=== PATIENT | female | born 1975 | race American Indian/Alaskan Native ===

== ENCOUNTER 2021-07-24 11:21 | Emergency (ER) | payer BC, OTHER ==
[2021-07-24] MEDS ORDERED: HYDROcodone/ACETAMINOPHEN 5-325 MG TAB PO ONE (11:50)
[2021-07-24] MEDS ORDERED: IBUPROFEN 600 MG TAB PO ONE (11:50)
--- NOTE | 2021-07-24 11:55 | Emergency Department Report ---
ED Female HPI - General Chief complaint: Urogenital-Female Stated complaint: PELVIC PAIN/VAG BLEEDING Time Seen by Provider: 07/24/21 11:42 Source: patient Mode of arrival: Ambulatory Limitations: No Limitations - History of Present Illness Initial comments: Patient is a 46-year-old female presents emergency room with complaints of worsening pelvic pain that began yesterday. Patient has a history of endometriosis and fibroids. She states that she had an ablation procedure in 2017. She states that her menstrual cycle began on 07/21/21. She states typically by day 4 of her cycle her symptoms and bleeding have improved. She states that her pain has increased and her bleeding has become heavier. She states that she is changing her pad approximately 6 or 7 times a day. She states that she has heavy bleeding and is passing clots. Patient states that she went to her PROJECT ADMINISTRATOR office yesterday and had a full complete pelvic examination but states that she was not having as much pain and bleeding then. She states that they were discussing setting her up for outpatient labs and ultrasound. She states that the pain just got worse and that is what made her report to the emergency room. Past medical history of hypertension and sarcoidosis. No allergies to medications. pts mother is from ovarian cancer. she has a hx of ablation and right sided oopherectomy from an endometrioma. - Related Data Home Medications Medication Instructions Recorded Confirmed Last Taken Citalopram Hydrobromide 40 mg PO DAILY 09/13/17 07/24/21 Unknown [Citalopram HBr] Ursodiol (Nf) [Actigall (Nf)] 2 cap PO BID 09/13/17 07/24/21 Unknown Previous Rx's Medication Instructions Recorded Last Taken Type Acetaminophen [Tylenol] 650 mg PO Q8HR PRN #20 capsule 07/24/21 Unknown Rx Docusate Sodium [Colace] 100 mg PO BID #60 capsule 07/24/21 Unknown Rx Ferrous Sulfate [Ferrous Sulfate 324 mg PO DAILY #30 tablet. 07/24/21 Unknown Rx 324 MG] Ibuprofen [Motrin 600 MG tab] 600 mg PO Q8H PRN #20 tablet 07/24/21 Unknown Rx Allergies Allergy/AdvReac Type Severity Reaction Status Date / Time No Known Allergies Allergy Unverified 09/13/17 11:29 ED Review of Systems ROS: Stated complaint: PELVIC PAIN/VAG BLEEDING Other details as noted in HPI Comment: All other systems reviewed and negative ED Past Medical Hx - Past Medical History Hx Hypertension: Yes Hx Liver Disease: Yes (liver sarcoidosis) - Surgical History Hx Cholecystectomy: Yes - Social History Smoking Status: Never Smoker - Medications Home Medications: Home Medications Medication Instructions Recorded Confirmed Last Taken Type Citalopram Hydrobromide 40 mg PO DAILY 09/13/17 07/24/21 Unknown History [Citalopram HBr] Ursodiol (Nf) [Actigall (Nf)] 2 cap PO BID 09/13/17 07/24/21 Unknown History Acetaminophen [Tylenol] 650 mg PO Q8HR PRN #20 capsule 07/24/21 Unknown Rx Docusate Sodium [Colace] 100 mg PO BID #60 capsule 07/24/21 Unknown Rx Ferrous Sulfate [Ferrous Sulfate 324 mg PO DAILY #30 tablet.dr 07/24/21 Unknown Rx 324 MG] Ibuprofen [Motrin 600 MG tab] 600 mg PO Q8H PRN #20 tablet 07/24/21 Unknown Rx ED Physical Exam - General Limitations: No Limitations General appearance: alert, in no apparent distress - Head Head exam: Present: atraumatic, normocephalic - Eye Eye exam: Present: normal appearance - ENT ENT exam: Present: mucous membranes moist - Respiratory Respiratory exam: Present: normal lung sounds bilaterally. Absent: respiratory distress, wheezes, rales, rhonchi, stridor, chest wall tenderness, accessory muscle use, decreased breath sounds, prolonged expiratory - Cardiovascular Cardiovascular Exam: Present: regular rate, normal rhythm, normal heart sounds. Absent: systolic murmur, diastolic murmur, rubs, gallop - GI/Abdominal GI/Abdominal exam: Present: soft, tenderness (suprapubic), normal bowel sounds. Absent: distended, guarding, rebound, rigid - Neurological Exam Neurological exam: Present: alert, oriented X3 - Psychiatric Psychiatric exam: Present: normal affect, normal mood - Skin Skin exam: Present: warm, dry, intact ED Course Vital Signs 07/24/21 07/24/21 07/24/21 11:37 12:03 12:05 Temperature 98.4 F 98.2 F Pulse Rate 105 H 73 Respiratory 20 14 Rate Blood Pressure 184/95 Blood Pressure 173/89 [Right] O2 Sat by Pulse 97 99 99 Oximetry ED Medical Decision Making - Lab Data Result diagrams: 07/24/21 13:15 07/24/21 13:15 Lab Results 07/24/21 07/24/21 07/24/21 Range/Units 13:15 13:15 13:15 WBC 13.9 H (4.5-11.0) K/mm3 RBC 3.56 L (3.65-5.03) M/mm3 Hgb 8.5 L (10.1-14.3) gm/dl Hct 27.5 L (30.3-42.9) % MCV 76 L (79-97) fl MCH 24 L (28-32) pg MCHC 31 (30-34) % RDW 20.1 H (13.2-15.2) % Plt Count 459 H (140-440) K/mm3 Lymph % (Auto) 19.8 (13.4-35.0) % T[place] % (Auto) 6.8 (0.0-7.3) % Eos % (Auto) 1.0 (0.0-4.3) % Baso % (Auto) 1.5 (0.0-1.8) % Lymph # (Auto) 2.6 (1.2-5.4) K/mm3 Taney # (Auto) 0.9 H (0.0-0.8) K/mm3 Eos # (Auto) 0.1 (0.0-0.4) K/mm3 Baso # (Auto) 0.2 H (0.0-0.1) K/mm3 Seg Neutrophils % 71.7 H (40.0-70.0) % Seg Neutrophils # 10.0 H (1.8-7.7) K/mm3 Sodium 136 L (137-145) mmol/L Potassium 3.8 (3.6-5.0) mmol/L Chloride 102.9 (98-107) mmol/L Carbon Dioxide 21 L (22-30) mmol/L Anion Gap 16 mmol/L BUN 5 L (7-17) mg/dL Creatinine 0.5 L (0.6-1.2) mg/dL Estimated GFR > 60 ml/min BUN/Creatinine Ratio 10 % Glucose 89 (65-100) mg/dL Calcium 9.1 (8.4-10.2) mg/dL Total Bilirubin 0.40 (0.1-1.2) mg/dL AST 19 (5-40) units/L ALT 12 (7-56) units/L Alkaline Phosphatase 183 H (35-129) units/L Total Protein 8.9 H (6.3-8.2) g/dL Albumin 3.4 L (3.9-5) g/dL Albumin/Globulin Ratio 0.6 % HCG, Quant < 2 (0-4) mIU/mL Vital Signs 07/24/21 07/24/21 07/24/21 11:37 12:03 12:05 Temperature 98.4 F 98.2 F Pulse Rate 105 H 73 Respiratory 20 14 Rate Blood Pressure 184/95 Blood Pressure 173/89 [Right] O2 Sat by Pulse 97 99 99 Oximetry - Radiology Data Radiology results: report reviewed Ordering Physician: ROSE MONTAGUE Date of Service: 07/24/21 Procedure(s): US transvaginal Accession Number(s): [id number] cc: ROSE MONTAGUE Pelvic Ultrasound HISTORY: pelvic pain, heavy bleeding, family hx ovarian CA. TECHNIQUE: Grayscale and color imaging performed. COMPARISON: None FINDINGS: Transabdominal and endovaginal imaging was performed. Uterus measures 10.6 x 5.2 x 5.2 cm and contains several fibroids which are primarily isoechoic to hypoechoic and slightly heterogeneous in appearance. The largest fibroid measures 2.7 cm in maximal dimension in the uterine body. Endometrial echo complex is thickened measuring 1.7 cm. There is trace simple pelvic free fluid. Right ovary surgically absent. The left ovary contains cysts measuring up to 3.5 cm in maximal dimension. There is also complex which appears to have a solid component mar ginally and measures 2.2 cm in maximal dimension. There is preserved ovarian blood flow. IMPRESSION: 1. Uterine fibroids. 2. Left ovary contains cysts with a complex cyst versus partially solid mass. The latter possibility exists because there appears to be some marginal blood flow. C orrelate with MRI of the pelvis with contrast. 3. Right ovary surgically absent. Signer Name: Te Cordon MD Signed: 07/24/2021 1:01 PM Workstation Name: [id number] Transcribed By: ALBIN Dictated By: Te Cordon MD Electronically Authenticated By: Te Cordon MD Signed Date/Time: 07/24/21 1301 DD/ 0601 TD/TT: - Medical Decision Making Patient is a 46-year-old female presents emergency room with complaints of worsening pelvic pain that began yesterday. Patient has a history of endometriosis and fibroids. She states that she had an ablation procedure in 2017. She states that her menstrual cycle began on 07/21/21. She states typically by day 4 of her cycle her symptoms and bleeding have improved. She states that her pain has increased and her bleeding has become heavier. She states that she is changing her pad approximately 6 or 7 times a day. She states that she has heavy bleeding and is passing clots. Patient states that she went to her PROJECT ADMINISTRATOR office yesterday and had a full complete pelvic examination but states that she was not having as much pain and bleeding then. She states that they were discussing setting her up for outpatient labs and ultrasound. She states that the pain just got worse and that is what made her report to the emergency room. Past medical history of hypertension and sarcoidosis. No allergies to medications. pts mother is from ovarian cancer. she has a hx of ablation and right sided oopherectomy from an endometrioma. Vitals with elevated blood pressure, otherwise stable. Patient is not having any symptoms related to her elevated blood pressure, patient was offered to be started on medication or to attempt lifestyle modification with close primary care follow-up, she states that she would like to do lifestyle modifications and keep a blood pressure log and follow-up outpatient. Labs with stable microcytic anemia. hCG quant is less than 2. Pelvic ultrasound: 1. Uterine fibroids. 2. Left ovary contains cysts with a complex cyst versus partially solid mass. The latter possibility exists because there appears to be some marginal blood flow. Correlate with MRI of the pelvis with contrast. 3. Right ovary surgically absent. Discussed all results with patient discussed the importance of close PROJECT ADMINISTRATOR follow-up regarding abnormality on ultrasound. Dr. Rosa, ER attending also evaluated patient at bedside please see his note. Patient given prescription for medications. Advised patient Please take medication as prescribed. Follow-up with your PROJECT ADMINISTRATOR. Follow-up with your primary care doctor. Return to emergency room for any new or worsening symptoms. Please follow-up with your primary care doctor regarding the elevation in your blood pressure during today's visit. Eat a low-sodium diet, incorporate 30-60 minutes of daily exercise, keep a blood pressure log and take this to the primary care doctor. Critical care attestation.: If time is entered above; I have spent that time in minutes in the direct care of this critically ill patient, excluding procedure time. ED Disposition Clinical Impression: Dysmenorrhea, Ovarian mass, left, Microcytic anemia, Elevated blood pressure reading Menorrhagia Qualifiers: Menorrhagia type: with regular cycle Qualified Code(s): N92.0 - Excessive and frequent menstruation with regular cycle Disposition: 01 HOME / SELF CARE / HOMELESS Is pt being admited?: No Does the pt Need Aspirin: No Condition: Stable Instructions: Preventing Iron Deficiency Anemia, Adult, Menorrhagia, [id number], Managing Your Hypertension, Dysmenorrhea, [id number] Additional Instructions: Please take medication as prescribed. Follow-up with your PROJECT ADMINISTRATOR. Follow-up with your primary care doctor. Return to emergency room for any new or worsening symptoms. Please follow-up with your primary care doctor regarding the elevation in your blood pressure during today's visit. Eat a low-sodium diet, incorporate 30-60 minutes of daily exercise, keep a blood pressure log and take this to the primary care doctor. Prescriptions: Docusate Sodium [Colace] 100 mg PO BID #60 capsule Ferrous Sulfate [Ferrous Sulfate 324 MG] 324 mg PO DAILY #30 tablet. Ibuprofen [Motrin 600 MG tab] 600 mg PO Q8H PRN #20 tablet PRN Reason: Pain Acetaminophen [Tylenol] 650 mg PO Q8HR PRN #20 capsule PRN Reason: pain Referrals: ELIE MENDOZA MD [Primary Care Provider] - 3-5 Days MAI GONZALES MD [Staff Physician] - 3-5 Days Time of Disposition: 14:42 Print Language: GAMBIAN
[2021-07-24 12:11] VITALS: BP 173/89
--- NOTE | 2021-07-24 13:05 | Ultrasound Report ---
Pelvic Ultrasound HISTORY: pelvic pain, heavy bleeding, family hx ovarian CA. TECHNIQUE: Grayscale and color imaging performed. COMPARISON: None FINDINGS: Transabdominal and endovaginal imaging was performed. Uterus measures 10.6 x 5.2 x 5.2 cm and contains several fibroids which are primarily isoechoic to hy poechoic and slightly heterogeneous in appearance. The largest fibroid measures 2.7 cm in maximal dim ension in the uterine body. Endometrial echo complex is thickened measuring 1.7 cm. There is trace simple pelvic free fluid. Right ovary surgically absent. The left ovary contains cysts measuring up to 3.5 cm in maximal dimens ion. There is also complex which appears to have a solid component marginally and measures 2.2 cm in maximal dimension. There is preserved ovarian blood flow. IMPRESSION: 1. Uterine fibroids. 2. Left ovary contains cysts with a complex cyst versus partially solid mass. The latter possibility exists because there appears to be some marginal blood flow. Correlate with MRI of the pelvis with co ntrast. 3. Right ovary surgically absent. Signer Name: Te Cordon MD Signed: 07/24/2021 1:01 PM Workstation Name: [id number]
--- NOTE | 2021-07-24 13:20 | Event Note ---
Date: 07/24/21 The patient was evaluated in the emergency department for symptoms described in the history of present illness. He/she was evaluated in the context of the global COVID-19 pandemic, which necessitated consideration that the patient might be at risk for infection with the virus that causes COVID-19. Institutional protocols and algorithms that pertain to the evaluation of patients at risk for COVID-19 are in a state of rapid change based on information released by regulatory bodies including the CDC and federal and state organizations. These policies and algorithms were followed during the patient's care in the emergency department. Please note that these policies, procedures and recommendations changed on a rapid basis. [id number] evaluation performed. Patient presented with dysmenorrhea. She has a history of right-sided oophorectomy, secondary to nonmalignant tumor, and history of dysmenorrhea, and myomectomy. She saw her wallpaper hanger helper Dr. Thrasher yesterday. She has a follow-up appointment with her wallpaper hanger helper on August 05 of next week. She states that she has no significant pain at this time. She is aware that she has elevated blood pressure, but does not have a chronically known diagnosis of established hypertension. She is follows with a primary care doctor, and she reports that she prefers to pursue diet and lifestyle modifications for her elevated blood pressure. She prefers to be discharged with ibuprofen, 800 mg, every 8 hours with food as needed for pain, alternating with acetaminophen, 650 mg by mouth, every 4-6 hours as needed for pain. I did offer the patient a short course of opioids for breakthrough pain, but she did not want this prescription, I have concern for addiction, and chemical dependency. Through shared decision-making, we agreed for a trial of the aforementioned nonnarcotic analgesia, and she will follow up with her wallpaper hanger helper next week, to determine if more potent analgesia is required. At the moment, she appears comfortable, is talking on the cell phone, and endorses significant improvement in symptoms. Specifically counseled patient on need to follow-up with her wallpaper hanger helper to rule out cancer, tumor, malignancy. This patient has articulated understanding. [facility] [address] [place] [address] Ultrasound Report Signed Patient: LUKAS MONGE MR# : [id number] : 1975 Acct:[id number] Age/Sex: 46 / F ADM Date: 07/24/21 Loc: ED Attending Dr: Ordering Physician: ROSE MONTAGUE Date of Service: 07/24/21 Procedure(s): US transvaginal Accession Number(s): [id number] cc: ROSE MONTAGUE Pelvic Ultrasound HISTORY: pelvic pain, heavy bleeding, family hx ovarian CA. TECHNIQUE: Grayscale and color imaging performed. COMPARISON: None FINDINGS: Transabdominal and endovaginal imaging was performed. Uterus measures 10.6 x 5.2 x 5.2 cm and contains several fibroids which are primarily isoechoic to hypoechoic and slightly heterogeneous in appearance. The largest fibroid measures 2.7 cm in maximal dimension in the uterine body. Endometrial echo complex is thickened measuring 1.7 cm. There is trace simple pelvic free fluid. Right ovary surgically absent. The left ovary contains cysts measuring up to 3.5 cm in maximal dimension. There is also complex which appears to have a solid component marginally and measures 2.2 cm in maximal dimension. There is preserved ovarian blood flow. IMPRESSION: 1. Uterine fibroids. 2. Left ovary contains cysts with a complex cyst versus partially solid mass. The latter possibility exists because there appears to be some marginal blood flow. Correlate with MRI of the pelvis with contrast. 3. Right ovary surgically absent. Signer Name: Te Cordon MD Signed: 07/24/2021 1:01 PM Workstation Name: [id number] Transcribed By: JW Dictated By: Te Cordon MD Electronically Authenticated By: Te Cordon MD Signed Date/Time: 07/24/21 1301 DD/ 1259 TD/TT: Lab Results 07/24/21 07/24/21 07/24/21 Range/Units 13:15 13:15 13:15 WBC 13.9 H (4.5-11.0) K/mm3 RBC 3.56 L (3.65-5.03) M/mm3 Hgb 8.5 L (10.1-14.3) gm/dl Hct 27.5 L (30.3-42.9) % MCV 76 L (79-97) fl MCH 24 L (28-32) pg MCHC 31 (30-34) % RDW 20.1 H (13.2-15.2) % Plt Count 459 H (140-440) K/mm3 Lymph % (Auto) 19.8 (13.4-35.0) % [place] % (Auto) 6.8 (0.0-7.3) % Eos % (Auto) 1.0 (0.0-4.3) % Baso % (Auto) 1.5 (0.0-1.8) % Lymph # (Auto) 2.6 (1.2-5.4) K/mm3 [place] # (Auto) 0.9 H (0.0-0.8) K/mm3 Eos # (Auto) 0.1 (0.0-0.4) K/mm3 Baso # (Auto) 0.2 H (0.0-0.1) K/mm3 Seg Neutrophils % 71.7 H (40.0-70.0) % Seg Neutrophils # 10.0 H (1.8-7.7) K/mm3 Sodium 136 L (137-145) mmol/L Potassium 3.8 (3.6-5.0) mmol/L Chloride 102.9 (98-107) mmol/L Carbon Dioxide 21 L (22-30) mmol/L Anion Gap 16 mmol/L BUN 5 L (7-17) mg/dL Creatinine 0.5 L (0.6-1.2) mg/dL Estimated GFR > 60 ml/min BUN/Creatinine Ratio 10 % Glucose 89 (65-100) mg/dL Calcium 9.1 (8.4-10.2) mg/dL Total Bilirubin 0.40 (0.1-1.2) mg/dL AST 19 (5-40) units/L ALT 12 (7-56) units/L Alkaline Phosphatase 183 H (35-129) units/L Total Protein 8.9 H (6.3-8.2) g/dL Albumin 3.4 L (3.9-5) g/dL Albumin/Globulin Ratio 0.6 % HCG, Quant < 2 (0-4) mIU/mL Vital Signs 07/24/21 07/24/21 07/24/21 11:37 12:03 12:05 Temperature 98.4 F 98.2 F Pulse Rate 105 H 73 Respiratory 20 14 Rate Blood Pressure 184/95 Blood Pressure 173/89 [Right] O2 Sat by Pulse 97 99 99 Oximetry
[2021-07-24 13:48] LABS: Alanine Aminotransferase 12 units/L (7-56); Albumin 3.4 g/dL (3.9-5); Blood Urea Nitrogen 5 mg/dL (7-17); Calcium 9.1 mg/dL (8.4-10.2); Hemolysis Index 3
[2021-07-24 13:49] LABS: BUN/Creatinine Ratio 10
[2021-07-24 14:26] LABS: Hemoglobin 8.5 gm/dl (10.1-14.3); Red Blood Count 3.56 M/mm3 (3.65-5.03)
[2021-07-24 14:27] LABS: Hematocrit 27.5 % (30.3-42.9); Mean Corpuscular HGB Conc 31 % (30-34); Mean Corpuscular Volume 76 fl (79-97); Platelet Count 459 K/mm3 (140-440); Red Cell Distribution Width 20.1 % (13.2-15.2)
[2021-07-24 14:29] LABS: Basophils # (Auto) 0.2 K/mm3 (0.0-0.1); Eosinophils # (Auto) 0.1 K/mm3 (0.0-0.4); Lymphocytes # (Auto) 2.6 K/mm3 (1.2-5.4); Monocytes # (Auto) 0.9 K/mm3 (0.0-0.8)
[2021-07-24 14:30] LABS: Basophils % (Auto) 1.5 % (0.0-1.8); Lymphocytes % (Auto) 19.8 % (13.4-35.0); Monocytes % (Auto) 6.8 % (0.0-7.3)
== END 2021-07-24 15:23 | disposition home or self-care (01) ==
LOC: ED 11:21
DX: N94.6 Dysmenorrhea, unspecified (principal); N92.0 Excessive and frequent menstruation with regular cycle; D64.89 Other specified anemias; N83.9 Noninflammatory disorder of ovary, fallopian tube and broad ligament, unspecified; R03.0 Elevated blood-pressure reading, without diagnosis of hypertension; I10 Essential (primary) hypertension; Z79.899 Other long term (current) drug therapy
CPT/HCPCS: 36415; 76830; 76856; 80053; 84702; 85025; 99284

== ENCOUNTER 2021-07-27 17:37 | Emergency (ER) | payer OTHER ==
[2021-07-27 19:53] VITALS: BP 149/90
--- NOTE | 2021-07-27 19:57 | Emergency Department Report ---
ED Female HPI - General Chief complaint: Urogenital-Female Stated complaint: SEVERE PELVIC PAIN Time Seen by Provider: 07/27/21 19:55 Source: patient Mode of arrival: Ambulatory Limitations: No Limitations - History of Present Illness Initial comments: 46-year-old female presents to the ER today with complaints of left pelvic pain and concern that she may be taking too much ibuprofen. Patient was seen here 3 days ago for worsening pelvic pain and heavier than normal bleeding during her menstrual cycle. During her evaluation patient had labs done including a pelvic ultrasound which showed that she had " Uterine fibroids and Left ovary contains cysts with a complex cyst versus partially solid mass. The latter possibility exists because there appears to be some marginal blood flow". Patient was discharged home in stable condition with instructions to follow-up with her LOSS PREVENTION RESEARCH ENGINEER. Patient states that she was given ibuprofen 800 for pain, but she states that she feels like she is taking too much ibuprofen. She states that ibuprofen does help the pain, but only last 3 hours. She states that she does have an appointment with her LOSS PREVENTION RESEARCH ENGINEER, Dr. Adames tomorrow but she just wants something to help control the pain better until her appointment. Patient states that since she was seen here 3 days ago her bleeding has slowed down significa ntly to where she is only sees it when she wipes. She denies any fever, nausea, vomiting, UTI symptoms, abnormal vaginal discharge, or any additional symptoms at this time. 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 MD Complaint: pelvic pain -: week(s) - Related Data Home Medications Medication Instructions Recorded Confirmed Last Taken Citalopram Hydrobromide 40 mg PO DAILY 09/13/17 07/24/21 Unknown [Citalopram HBr] Ursodiol (Nf) [Actigall (Nf)] 2 cap PO BID 09/13/17 07/24/21 Unknown Previous Rx's Medication Instructions Recorded Last Taken Type Acetaminophen [Tylenol] 650 mg PO Q8HR PRN #20 capsule 07/24/21 Unknown Rx Docusate Sodium [Colace] 100 mg PO BID #60 capsule 07/24/21 Unknown Rx Ferrous Sulfate [Ferrous Sulfate 324 mg PO DAILY #30 tablet. 07/24/21 Unknown Rx 324 MG] Ibuprofen [Motrin 600 MG tab] 600 mg PO Q8H PRN #20 tablet 07/24/21 Unknown Rx HYDROcodone/APAP 5-325 [[place] 1 each PO Q6HR PRN #12 tablet 07/27/21 Unknown Rx 5/325] Allergies Allergy/AdvReac Type Severity Reaction Status Date / Time No Known Allergies Allergy Unverified 09/13/17 11:29 ED Review of Systems ROS: Stated complaint: SEVERE PELVIC PAIN Other details as noted in HPI Comment: All other systems reviewed and negative Constitutional: denies: chills, fever Eyes: denies: eye pain, eye discharge, vision change ENT: denies: ear pain, throat pain Respiratory: denies: cough, shortness of breath, SOB with exertion, SOB at rest, wheezing Cardiovascular: denies: chest pain, palpitations Endocrine: no symptoms reported Gastrointestinal: abdominal pain. denies: nausea, diarrhea, constipation, hematemesis, melena, hematochezia Genitourinary: other (Pelvic pain). denies: urgency, dysuria, frequency, hematuria, discharge, abnormal menses, dyspareunia Musculoskeletal: denies: back pain, joint swelling, arthralgia Skin: denies: rash, lesions, change in color, change in hair/nails, pruritus Neurological: denies: headache, weakness, numbness, paresthesias, confusion, abnormal gait, vertigo Psychiatric: denies: anxiety, depression, auditory hallucinations, visual hallucinations, homicidal thoughts, suicidal thoughts Hematological/Lymphatic: denies: easy bleeding, easy bruising ED Past Medical Hx - Past Medical History Previous Medical History?: Yes Hx Hypertension: Yes Hx Liver Disease: Yes (liver sarcoidosis) Additional medical history: abnormal liver function. sarcodosis. fibroids - Surgical History Past Surgical History?: Yes Hx Cholecystectomy: Yes - Social History Smoking Status: Never Smoker - Medications Home Medications: Home Medications Medication Instructions Recorded Confirmed Last Taken Type Citalopram Hydrobromide 40 mg PO DAILY 09/13/17 07/24/21 Unknown History [Citalopram HBr] Ursodiol (Nf) [Actigall (Nf)] 2 cap PO BID 09/13/17 07/24/21 Unknown History Acetaminophen [Tylenol] 650 mg PO Q8HR PRN #20 capsule 07/24/21 Unknown Rx Docusate Sodium [Colace] 100 mg PO BID #60 capsule 07/24/21 Unknown Rx Ferrous Sulfate [Ferrous Sulfate 324 mg PO DAILY #30 tablet.dr 07/24/21 Unknown Rx 324 MG] Ibuprofen [Motrin 600 MG tab] 600 mg PO Q8H PRN #20 tablet 07/24/21 Unknown Rx HYDROcodone/APAP 5-325 [[place] 1 each PO Q6HR PRN #12 tablet 07/27/21 Unknown Rx 5/325] ED Physical Exam - General Limitations: No Limitations General appearance: alert, in no apparent distress - Head Head exam: Present: atraumatic, normocephalic, normal inspection - Eye Eye exam: Present: normal appearance, PERRL, EOMI Pupils: Present: normal accommodation - Neck Neck exam: Present: normal inspection, full ROM - Respiratory Respiratory exam: Present: normal lung sounds bilaterally. Absent: respiratory distress, wheezes, rales, rhonchi - Cardiovascular Cardiovascular Exam: Present: regular rate, normal rhythm, normal heart sounds - GI/Abdominal GI/Abdominal exam: Present: soft. Absent: distended, tenderness, guarding, rebound - Neurological Exam Neurological exam: Present: alert, oriented X3, CN II-XII intact, normal gait - Psychiatric Psychiatric exam: Present: normal affect, normal mood - Skin Skin exam: Present: intact ED Course Vital Signs 07/27/21 19:50 Temperature 98.8 F Pulse Rate 106 H Respiratory 16 Rate Blood Pressure 149/90 [Left] O2 Sat by Pulse 97 Oximetry ED Medical Decision Making - Medical Decision Making 46-year-old female presents to the ER today with complaints of left pelvic pain and concern that she may be taking too much ibuprofen. Patient was seen here 3 days ago for worsening pelvic pain and heavier than normal bleeding during her menstrual cycle. During her evaluation patient had labs done including a pelvic ultrasound which showed that she had " Uterine fibroids and Left ovary contains cysts with a complex cyst versus partially solid mass. The latter possibility exists because there appears to be some marginal blood flow". Patient was discharged home in stable condition with instructions to follow-up with her LOSS PREVENTION RESEARCH ENGINEER. Patient states that she was given ibuprofen 800 for pain, but she states that she feels like she is taking too much ibuprofen. She states that ibuprofen does help the pain, but only last 3 hours. Patient states that the pain has not changed since she was here 3 days ago. She states that she does have an appointment with her LOSS PREVENTION RESEARCH ENGINEER, Dr. Adames tomorrow but she just wants something to help control the pain better until her appointment. Patient states that since she was seen here 3 days ago her bleeding has slowed down significantly to where she is only sees it when she wipes. She denies any fever, nausea, vomiting, UTI symptoms, abnormal vaginal discharge, or any additional symptoms at this time. 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 Physical exam shows a well-appearing female who is nontoxic and not in any acute distress. She appears well-hydrated. She is neurologically intact with a normal gait. Abdominal exam shows soft nontender abdomen. Her vital signs are stable. Patient requesting better pain control for her pelvic pain. Its the same pain that she has had for a while. She is scheduled to see LOSS PREVENTION RESEARCH ENGINEER tomorrow. Informed patient I will give her a few hydrocodone's, and she can continue taking ibuprofen but most importantly to keep her appointment with her OB. Patient expressed understanding for instructions and agree with plan. Patient stable at time of discharge. Critical care attestation.: If time is entered above; I have spent that time in minutes in the direct care of this critically ill patient, excluding procedure time. ED Disposition Clinical Impression: Pelvic pain, Ovarian mass, left, Uterine fibroid, Hx of endometriosis Disposition: HOME / SELF CARE / HOMELESS Is pt being admited?: No Does the pt Need Aspirin: No Condition: Stable Instructions: Uterine Fibroids, [id number], Pelvic Pain, Female, Pelvic Mass, Female Additional Instructions: Take the hydrocodone as prescribed. Continue taking the motrin and take the norco as needed for additional pain control. Return to ED if worse. Prescriptions: HYDROcodone/APAP 5-325 [[place] 5/325] 1 each PO Q6HR PRN #12 tablet PRN Reason: Pain Referrals: JULIA ADAMES MD [Staff Physician] - 07/28/21 Time of Disposition: 20:03
== END 2021-07-27 20:44 | disposition home or self-care (01) ==
LOC: ED 17:37
DX: N83.202 Unspecified ovarian cyst, left side (principal); D25.9 Leiomyoma of uterus, unspecified; R10.2 Pelvic and perineal pain; N80.9 Endometriosis, unspecified; I10 Essential (primary) hypertension; D86.89 Sarcoidosis of other sites; Z98.890 Other specified postprocedural states
CPT/HCPCS: 99281

== ENCOUNTER 2021-08-16 18:14 | Emergency (ER) | payer OTHER ==
[2021-08-16 18:25] VITALS: BP 153/84
[2021-08-16] MEDS ORDERED: MORPHINE 4 MG/1 ML INJ IV ONE (19:26)
[2021-08-16] MEDS ORDERED: ONDANSETRON 4 MG/2 ML INJ IV ONE (19:26)
[2021-08-16] MEDS ORDERED: SODIUM CHLORIDE 0.9% 1000 ML 1,000 ML IV ONE ×2 (19:26→21:08)
[2021-08-16] MEDS ORDERED: FAMOTIDINE 20 MG/2 ML INJ IV ONE (19:26)
[2021-08-16 20:41] LABS: Basophils # (Auto) 0.1 K/mm3 (0.0-0.1); Basophils % (Auto) 0.6 % (0.0-1.8); Eosinophils % (Auto) 0.1 % (0.0-4.3); Hematocrit 28.3 % (30.3-42.9); Hemoglobin 9.1 gm/dl (10.1-14.3); Lymphocytes # (Auto) 1.3 K/mm3 (1.2-5.4); Lymphocytes % (Auto) 14.9 % (13.4-35.0); Mean Corpuscular HGB Conc 32 % (30-34); Mean Corpuscular Volume 74 fl (79-97); Monocytes # (Auto) 0.9 K/mm3 (0.0-0.8); Monocytes % (Auto) 9.7 % (0.0-7.3); Platelet Count 402 K/mm3 (140-440); Red Blood Count 3.81 M/mm3 (3.65-5.03); Red Cell Distribution Width 18.7 % (13.2-15.2)
[2021-08-16 20:49] LABS: Alanine Aminotransferase 19 units/L (7-56); Blood Urea Nitrogen 8 mg/dL (7-17); Calcium 9.7 mg/dL (8.4-10.2); Hemolysis Index 5
[2021-08-16 20:55] LABS: BUN/Creatinine Ratio 13
[2021-08-16 20:55] LABS: Bacteria,Urine 1+ /HPF (Negative); Bilirubin,Urine NEG (Negative); Blood,Urine NEG (Negative); Color,Urine Amber (Yellow); Mucus,Urine 3+ /HPF; Protein,Urine >500 mg/dL (Negative)
[2021-08-16] MEDS ORDERED: POTASSIUM CHLORIDE ER 20 MEQ TAB PO ONE (21:04)
[2021-08-16] MEDS ORDERED: ACETAMINOPHEN 500 MG TAB PO ONE (21:08)
--- NOTE | 2021-08-16 21:09 | Emergency Department Report ---
ED Abdominal Pain HPI - General Chief Complaint: Nausea/Vomiting/Diarrhea Stated Complaint: NAUSEA/VOMITING 24HRS Source: patient Mode of arrival: Ambulatory Limitations: No Limitations - History of Present Illness Initial Comments: Patient is a 46-year-old -Indian female with a history of chronic liver disease, hypertension and uterine fibroids presents to the ED with complaint of acute onset persistent right flank pain that radiates to the right hip and right lower quadrant area for the last 5 days. Patient states that the pain has been persistent and got worse in the last 24 hours. Patient also complains of nausea and vomiting especially in the last 12 hours she has not been able to keep anything down including medication that she is supposed to be taking. Patient denies fever, chills, dizziness, syncope, headache, back pain, vaginal bleeding, vaginal discharge, dysuria, urinary frequency and urgency, diarrhea, headache or sore throat and traumatic injury or heavy lifting. MD Complaint: abdominal pain (RUQ pain), flank pain (Right flank), other (Nausea and vomiting) -: Sudden, days(s) (2) Location: RUQ, R flank Radiation: RUQ, RLQ, R flank Migration to: no migration, RLQ Severity: severe Severity scale (0 -10): 8 Quality: cramping, aching, sharp Consistency: constant Improves With: nothing Worsens With: nothing Associated Symptoms: denies other symptoms, nausea, vomiting, diarrhea, anorexia. denies: fever, chills, constipation, dysuria, melena, hematuria, syncope - Related Data Home Medications Medication Instructions Recorded Confirmed Last Taken Citalopram Hydrobromide 40 mg PO DAILY 09/13/17 07/24/21 Unknown [Citalopram HBr] Ursodiol (Nf) [Actigall (Nf)] 2 cap PO BID 09/13/17 07/24/21 Unknown Previous Rx's Medication Instructions Recorded Last Taken Type Acetaminophen [Tylenol] 650 mg PO Q8HR PRN #20 capsule 07/24/21 Unknown Rx Docusate Sodium [Colace] 100 mg PO BID #60 capsule 07/24/21 Unknown Rx Ferrous Sulfate [Ferrous Sulfate 324 mg PO DAILY #30 tablet.dr 07/24/21 Unknown Rx 324 MG] Ibuprofen [Motrin 600 MG tab] 600 mg PO Q8H PRN #20 tablet 07/24/21 Unknown Rx HYDROcodone/APAP 5-325 [[place] 1 each PO Q6HR PRN #12 tablet 07/27/21 Unknown Rx 5/325] Ibuprofen [Motrin] 800 mg PO Q8HR PRN #30 tablet 08/16/21 Unknown Rx Ondansetron [Zofran Odt] 4 mg PO Q6HR PRN #20 tab.rapdis 08/16/21 Unknown Rx Promethazine [Phenergan] 25 mg [place] Q6HR PRN #15 supp.rect 08/16/21 Unknown Rx traMADoL [Ultram] 50 mg PO Q6HR PRN #10 tablet 08/16/21 Unknown Rx Allergies Allergy/AdvReac Type Severity Reaction Status Date / Time No Known Allergies Allergy Unverified 09/13/17 11:29 ED Review of Systems ROS: Stated complaint: NAUSEA/VOMITING 24HRS Other details as noted in HPI Constitutional: denies: chills, fever Eyes: denies: eye pain, eye discharge, vision change ENT: denies: ear pain, throat pain Respiratory: denies: cough, shortness of breath, wheezing Cardiovascular: denies: chest pain, palpitations Endocrine: no symptoms reported Gastrointestinal: abdominal pain, nausea, vomiting, diarrhea Genitourinary: denies: urgency, dysuria, discharge Musculoskeletal: denies: back pain, joint swelling, arthralgia Skin: denies: rash, lesions Neurological: denies: headache, weakness, paresthesias Psychiatric: denies: anxiety, depression Hematological/Lymphatic: denies: easy bleeding, easy bruising ED Past Medical Hx - Past Medical History Previous Medical History?: Yes Hx Hypertension: Yes Hx Liver Disease: Yes (liver sarcoidosis) Additional medical history: abnormal liver function. sarcodosis. fibroids - Surgical History Hx Cholecystectomy: Yes - Social History Smoking Status: Never Smoker - Medications Home Medications: Home Medications Medication Instructions Recorded Confirmed Last Taken Type Citalopram Hydrobromide 40 mg PO DAILY 09/13/17 07/24/21 Unknown History [Citalopram HBr] Ursodiol (Nf) [Actigall (Nf)] 2 cap PO BID 09/13/17 07/24/21 Unknown History Acetaminophen [Tylenol] 650 mg PO Q8HR PRN #20 capsule 07/24/21 Unknown Rx Docusate Sodium [Colace] 100 mg PO BID #60 capsule 07/24/21 Unknown Rx Ferrous Sulfate [Ferrous Sulfate 324 mg PO DAILY #30 tablet.dr 07/24/21 Unknown Rx 324 MG] Ibuprofen [Motrin 600 MG tab] 600 mg PO Q8H PRN #20 tablet 07/24/21 Unknown Rx HYDROcodone/APAP 5-325 [[place] 1 each PO Q6HR PRN #12 tablet 07/27/21 Unknown Rx 5/325] Ibuprofen [Motrin] 800 mg PO Q8HR PRN #30 tablet 08/16/21 Unknown Rx Ondansetron [Zofran Odt] 4 mg PO Q6HR PRN #20 tab.rapdis 08/16/21 Unknown Rx Promethazine [Phenergan] 25 mg [place] Q6HR PRN #15 supp.rect 08/16/21 Unknown Rx traMADoL [Ultram] 50 mg PO Q6HR PRN #10 tablet 08/16/21 Unknown Rx ED Physical Exam - General Limitations: No Limitations General appearance: alert, in no apparent distress, other (fever ) - Head Head exam: Present: atraumatic, normocephalic, normal inspection - Eye Eye exam: Present: normal appearance, PERRL, EOMI Pupils: Present: normal accommodation - ENT ENT exam: Present: normal exam, normal orophraynx, mucous membranes moist, TM's normal bilaterally, normal external ear exam - Neck Neck exam: Present: normal inspection, full ROM - Respiratory Respiratory exam: Present: normal lung sounds bilaterally. Absent: respiratory distress, wheezes, rales, stridor, chest wall tenderness, accessory muscle use, decreased breath sounds - Cardiovascular Cardiovascular Exam: Present: regular rate, normal rhythm, normal heart sounds. Absent: systolic murmur, diastolic murmur, rubs, gallop - GI/Abdominal GI/Abdominal exam: Present: soft, tenderness (Palpable RUQ and Right flank tenderness), normal bowel sounds. Absent: guarding, rebound, hyperactive bowel sounds, hypoactive bowel sounds - Extremities Exam Extremities exam: Present: normal inspection, full ROM, normal capillary refill - Back Exam Back exam: Present: normal inspection, full ROM. Absent: tenderness, CVA tenderness (R), CVA tenderness (L), muscle spasm, paraspinal tenderness, vertebral tenderness - Neurological Exam Neurological exam: Present: alert, oriented X3, CN II-XII intact, normal gait, reflexes normal - Psychiatric Psychiatric exam: Present: normal affect, normal mood - Skin Skin exam: Present: warm, dry, intact, normal color. Absent: rash ED Course Vital Signs 08/16/21 18:23 Temperature 101.1 F H Pulse Rate 89 Respiratory 14 Rate Blood Pressure 153/84 O2 Sat by Pulse 97 Oximetry ED Medical Decision Making - Lab Data Result diagrams: 08/16/21 20:17 08/16/21 20:17 - Radiology Data Radiology results: report reviewed, image reviewed [facility] [address] [place] [address] XRay Report Signed Patient: LUKAS MONGE MR# : [id number] : 1975 Acct:[id number] Age/Sex: 46 / F ADM Date: 08/16/21 Loc: ED Attending Dr: Ordering Physician: ROSE CASTRO Date of Service: 08/16/21 Procedure(s): XR chest routine 2V Accession Number(s): [id number] cc: ROSE CASTRO Fluoro Time In Minutes: CHEST PA AND LATERAL VIEWS INDICATION: Fever, nausea and vomiting. COMPARISON: None. FINDINGS: Support devices: None. Heart: Within normal limits. Lungs/Pleura: No consolidation is seen. There is mild peribronchial cuffing. No pleural abnormality. IMPRESSION: 1. Mild peribronchial cuffing which can be seen in the setting of lower airways disease. No consolidation is seen. Signer Name: Leander Pandya MD Signed: 08/16/2021 9:43 PM Workstation Name: [id number] Transcribed By: KENDRICK Dictated By: Leander Pandya MD Electronically Authenticated By: Leander Pandya MD Signed Date/Time: 08/16/212142 DD/ 42 TD/TT: [facility] [address] [place] [address] Cat Scan Report Signed Patient: LUKAS MONGE MR# : [id number] : 1975 Acct:[id number] Age/Sex: 46 / F ADM Date: 08/16/21 Loc: ED Attending Dr: Ordering Physician: ROSE CASTRO Date of Service: 08/16/21 Procedure(s): CT abdomen pelvis w con Accession Number(s): [id number] cc: ROSE CASTRO CT ABDOMEN AND PELVIS WITH CONTRAST INDICATION: Abdominal pain - RUQ. TECHNIQUE: Axial CT images were obtained through the abdomen and pelvis after IV contrast. All CT scans at this location are performed using CT dose reduction for ALARA by means of automated exposure contr ol. COMPARISON: Pelvic ultrasound 07/24/2021 FINDINGS: LOWER CHEST: No significant abnormality. LIVER: No significant abnormality. GALLBLADDER: Surgically absent BILE DUCTS: No significant abnormality. PANCREAS: No significant abnormality. SPLEEN: No significant abnormality. ADRENALS: No significant abnormality. RIGHT KIDNEY and URETER: No significant abnormality. LEFT KIDNEY and URETER: No significant abnormality. STOMACH and SMALL BOWEL: No significant abnormality. COLON: No significant abnormality. APPENDIX: Normal. PERITONEUM: No free fluid. No free air. No fluid collection. LYMPH NODES: No significant adenopathy. AORTA and ARTERIES: No significant abnormality. IVC and VEINS: No significant abnormality. URINARY BLADDER: No significant abnormality. REPRODUCTIVE ORGANS: 5.4 cm left ovarian cyst. 3.5 cm fibroid left uterine body. ADDITIONAL FINDINGS: None. SKELETAL SYSTEM: No significant abnormality. IMPRESSION: 1. 5.4 cm left ovarian cyst. No free fluid. 2. Leiomyomatous uterus 3. No acute inflammatory process or bowel obstruction Ovarian Cysts >5 and 7 cm: Should be described in the imaging report with a statement that they are almost certainly benign; yearly follow-up with US recommended. Signer Name: Nestor Combs MD Signed: 08/16/2021 10:53 PM Workstation Name: [id number] Transcribed By: Dictated By: Nestor Combs MD Electronically Authenticated By: Nestor Combs MD Signed Date/Time: 08/16/21 1411 - Medical Decision Making This is a 46-year-old -Indian female with a history of chronic liver disease, hypertension and uterine fibroids presents to the ED with complaint of acute onset persistent right flank pain that radiates to the right hip and right lower quadrant area for the last 5 days. Patient states that the pain has been persistent and got worse in the last 24 hours. Patient also complains of nausea and vomiting especially in the last 12 hours she has not been able to keep anything down including medication that she is supposed to be taking. In the ED, patient is alert and oriented x3 and is not in any distress. Patient however appears to be in pain. Patient is febrile with a fever of 101 F and normotensive. Patient was treated to the ED for fever, also treated for pain, given antacids and antiemetics as well as normal saline 1 L IV bolus x1. Chest x-ray showed no acute cardiopulmonary abnormalities or pneumonitis. Abdomen pelvis CT scan with contrast showed a 5.4 cm left ovarian cyst. No free fluid. It also showed Leiomyomatous uterus but no acute inflammatory process or bowel obstruction. On reevaluation, patient's pain is well controlled medication. Patient is hemodynamically stable and patient's pain is well controlled. atient was therefore discharged home on antiemetics, pain medications and advised to follow-up with her primary care physician or CREATIVE SERVICES DIRECTOR physician in 5 to 7 days for reevaluation. Patient was advised return to the ED immediately if symptoms get worse. - Differential Diagnosis kidney stones; UTI; Gastroenteritis; Pylonephritis Critical care attestation.: If time is entered above; I have spent that time in minutes in the direct care of this critically ill patient, excluding procedure time. ED Disposition Clinical Impression: Acute abdominal pain in right flank, Nausea, vomiting and diarrhea, Left ovarian cyst, Fever and chills Fibroid uterus Qualifiers: Uterine leiomyoma location: unspecified location Qualified Code(s): D25.9 - Leiomyoma of uterus, unspecified Disposition: 01 HOME / SELF CARE / HOMELESS Is pt being admited?: No Does the pt Need Aspirin: No Condition: Stable Instructions: Uterine Fibroids, [id number], Nausea and Vomiting, Adult, [id number], Ovarian Cyst, [id number], Flank Pain, Adult, [id number], Fever, Adult, [id number] Additional Instructions: All lab test results were reviewed and are all nonactionable including urin alysis. Chest x-ray showed no acute cardiopulmonary abnormalities or pneumonitis. Abdomen pelvis CT scan with contrast showed a 5.4 cm left ovarian cyst and a 3.5 cm right-sided uterine fibroid. Your pain is likely due to uterine fibroids as well as ovarian cysts or even due to viral syndrome. T herefore take medications with food, drink plenty of fluids and follow-up with your CREATIVE SERVICES DIRECTOR physician in 5 to 7 days for reevaluation. Return to the ED immediately if symptoms get worse. Prescriptions: Ibuprofen [Motrin] 800 mg PO Q8HR PRN #30 tablet PRN Reason: Pain , Severe (7-10) Promethazine [Phenergan] 25 mg [place] Q6HR PRN #15 supp.rect PRN Reason: Nausea traMADoL [Ultram] 50 mg PO Q6HR PRN #10 tablet PRN Reason: Pain Ondansetron [Zofran Odt] 4 mg PO Q6HR PRN #20 tab.rapdis PRN Reason: Nausea And Vomiting Referrals: ELIE MENDOZA MD [Primary Care Provider] - 3-5 Days Forms: Work/School Release Form(ED) Time of Disposition: 23:47 Print Language: MONGOLIAN
--- NOTE | 2021-08-16 21:48 | XRay Report ---
CHEST PA AND LATERAL VIEWS INDICATION: Fever, nausea and vomiting. COMPARISON: None. FINDINGS: Support devices: None. Heart: Within normal limits. Lungs/Pleura: No consolidation is seen. There is mild peribronchial cuffing. No pleural abnormality. IMPRESSION: 1. Mild peribronchial cuffing which can be seen in the setting of lower airways disease. No consolida tion is seen. Signer Name: Leander Pandya MD Signed: 08/16/2021 9:43 PM Workstation Name: [id number]
--- NOTE | 2021-08-16 22:58 | Cat Scan Report ---
CT ABDOMEN AND PELVIS WITH CONTRAST INDICATION: Abdominal pain - RUQ. TECHNIQUE: Axial CT images were obtained through the abdomen and pelvis after IV contrast. All CT scans at this location are performed using CT dose reduction for ALARA by means of automated exposure control. COMPARISON: Pelvic ultrasound 07/24/2021 FINDINGS: LOWER CHEST: No significant abnormality. LIVER: No significant abnormality. GALLBLADDER: Surgically absent BILE DUCTS: No significant abnormality. PANCREAS: No significant abnormality. SPLEEN: No significant abnormality. ADRENALS: No significant abnormality. RIGHT KIDNEY and URETER: No significant abnormality. LEFT KIDNEY and URETER: No significant abnormality. STOMACH and SMALL BOWEL: No significant abnormality. COLON: No significant abnormality. APPENDIX: Normal. PERITONEUM: No free fluid. No free air. No fluid collection. LYMPH NODES: No significant adenopathy. AORTA and ARTERIES: No significant abnormality. IVC and VEINS: No significant abnormality. URINARY BLADDER: No significant abnormality. REPRODUCTIVE ORGANS: 5.4 cm left ovarian cyst. 3.5 cm fibroid left uterine body. ADDITIONAL FINDINGS: None. SKELETAL SYSTEM: No significant abnormality. IMPRESSION: 1. 5.4 cm left ovarian cyst. No free fluid. 2. Leiomyomatous uterus 3. No acute inflammatory process or bowel obstruction Ovarian Cysts >5 and 7 cm: Should be described in the imaging report with a statement that they are a lmost certainly benign; yearly follow-up with US recommended. Signer Name: Nestor Combs MD Signed: 08/16/2021 10:53 PM Workstation Name: [id number]
== END 2021-08-17 00:38 | disposition home or self-care (01) ==
LOC: ED 18:14
DX: D25.9 Leiomyoma of uterus, unspecified (principal); N83.202 Unspecified ovarian cyst, left side; R11.2 Nausea with vomiting, unspecified; I10 Essential (primary) hypertension
CPT/HCPCS: 36415; 71046; 74177; 80053; 81001; 83690; 84703; 85025; 87086; 96361; 96374; 96375; 99284; J2270; J2405; J7030; Q9967

== ENCOUNTER 2021-09-04 06:14 | Observation (INO) | payer OTHER ==
--- NOTE | 2021-09-01 14:10 | Anesthesia Consultation ---
Anesthesia Consult and Med Hx Date of service: 09/04/21 - Airway Anesthetic Teeth Evaluation: Good, Chipped (lower left premolar) ROM Head & Neck: Adequate Mental/Hyoid Distance: Adequate Mallampati Class: Class I Intubation Access Assessment: Good - Pulmonary Exam CTA: Yes - Cardiac Exam Cardiac Exam: RRR - Pre-Operative Health Status ASA Pre-Surgery Classification: ASA2 Proposed Anesthetic Plan: General Nerve Block: TAP - Pulmonary Hx Smoking: No Hx Respiratory Symptoms: No (hx sarcoidosis with minimal lung involvement per patient) - Cardiovascular System Hx Hypertension: No Hx Heart Attack/AMI: No - Central Nervous System CVA: No - Endocrine Hx Renal Disease: No Hx Liver Disease: Yes (liver sarcoidosis) Hx Insulin Dependent Diabetes: No Hx Non-Insulin Dependent Diabetes: No Hx Thyroid Disease: No - Hematic Hx Anemia: Yes (remote hx transfusion) - Other Systems Hx Obesity: Yes (BMI 36) - Additional Comments Anesthesia Medical History Comments: No hx anesthetic complications. Patient reports hx chest pain 2 months ago and had recent exercise stress test. Cardiology clinic visit scheduled for 09/02/21. Records requested.
--- NOTE | 2021-09-03 21:12 | History and Physical Report ---
History of Present Illness Date of examination: 09/01/21 History of present illness: Patient has been reassessed/reevaluated. H&P has been reviewed. No interval changes. This is a 46 years old female who presents with uterine fibroids. She complains of pelvic pain, pelvic pressure, menorrhagia and menstrual disorder. The symptoms began 4-6 months ago. She complains of irregular menses, heavy bleeding, dysmenorrhea, clotting, history of fibroids, fatigue and cramping, but denies mid-cycle spotting, lack of menses, history of ovarian cysts, history of thyroid disease, history of PCOS, history of bleeding disorder and lightheadedness. Menses started at age 14. Interval between menses is 24 days and 30 days. Menstrual flow lasts 5 days and 7 days. Treatment tried to date includes control pills, myomectomy and NSAIDs. Patient's work up has included hysterosonogram with a benign endometrial biopsy and revealed leiomyomata. Patient's symptoms when present disrupts her normal daily activities Vital Signs: Patient Profile: 46 Years Old Female LMP: 08/06/2021 Height: 66 inches (167.64 cm) Weight: 223 pounds BMI: 35.99 Temp: 97.8 degrees F BP sittin / 84 (left arm) Menstrual History: LMP (date): 08/06/2021 Date of Last Pap Smear: 12/18/2020 Past History : 5 Term Births: 1 Living Children: 1 Para: 1 Prev : 1 Aborta: 4 Elect. Ab: 1 Spont. Ab: 3 # 1 Delivery date: 02/07/2001 Weeks Gestation: 14 Delivery type: SAB Comments: was told needed cerclage # 2 Delivery date: 11/23/2001 Weeks Gestation: 40 labor: no Delivery type: Anesthesia type: epidural Delivery location: [facility] Infant Sex: Female weight: 6-10 Comments: pcs d/t nonreassuring fhr/ftp +cerclage # 3 Delivery date: 02/06/2006 Weeks Gestation: 7-8 Delivery type: SAB Comments: no complications # 4 Delivery date: 02/06/1995 Delivery type: EAB Comments: no complications # 5 Delivery date: 2008 Delivery type: SAB PROCED TECH History Uterine Surgery (not C/S): positive Operations: Cholecystectomy Salpingo-oophorectomy (2009)(R): endometrioma CT guided drainage of (R) pelvic abscess (PFH) (2016) Endometrial Ablation: (09/14/2017) Myomectomy (09/14/2017) hysteroscopic D&C: (09/14/2017) Hospitalizations: yes Anesthesia Complications: negative Abnormal PAP: negative Uterine Anomaly: positive fibroids RED Exposure: negative Infertility: negative Infection History HIV Risk Eval: no TB exposure: no Personal hx. of genital herpes: yes Partner hx. of genital herpes: no Hx of STD: HSV Current Allergies (reviewed today): No known allergies Past Medical History: liver disease Dr. Ignacio Gould [place] GERD sarcoidosis h/o pelvic abscess (2016) endometriosis Anxiety BRCA negative Fibroids Past Surgical History: Cholecystectomy Salpingo-oophorectomy (2009)(R): endometrioma CT guided drainage of (R) pelvic abscess (PFH) (2016) Endometrial Ablation: (09/14/2017) Myomectomy (09/14/2017) hysteroscopic D&C: (09/14/2017) Family History Summary: Other Family Member - Has No Family History of Uterine Cancer - Entered On: 09/13/2017 Other Family Member - Has No Family History of Small Bowel Cancer - Entered On: 09/13/2017 Other Family Member - Has No Family History of Stomach Cancer - Entered On: 09/13/2017 Other Family Member - Has No Family History of Pancreatic Cancer - Entered On: 09/13/2017 Other Family Member - Has No Family History of Kidney/Urinary Tract Cancer - Entered On: 09/13/2017 Other Family Member - Has No Family History of DVT/PE on OCP - Entered On: 09/13/2017 Other Family Member - Has No Family History of Colon Cancer - Entered On: 09/13/2017 Other Family Member - Has No Family History of Brain Cancer - Entered On: 09/13/2017 Other Family Member - Has No Family History of Breast Cancer - Entered On: 09/13/2017 Other Family Member - Has No Family History of Biliary Tract Cancer - Entered On: 09/13/2017 Mother - Has Family History of Ovarian Cancer - Entered On: 03/10/2017 General Comments - FH: mother--ovarian cancer, dx at 58 no breast or colon cancer Family History of Diabetes Family History of Hypertension Family History of Colon Cancer Social History: occ etoh,no drugs,no tobacco MA Patient is single Smoking History: Patient has never smoked. Risk Factors: Smoked Tobacco Use: Never smoker Smokeless Tobacco Use: Never Passive Smoke Exposure: no Caffeine Use: 0 drinks per day Seatbelt Use: 100 % PAP Smear History: Date of Last PAP Smear: 12/18/2020 Alcohol Use: yes Type: occ Drinks per day: <1 Drug Use: no Review of Systems General Complains of fatigue. Denies fever, chills, sweats, anorexia, weakness, malaise, weight loss and sleep disorder. Complains of menorrhagia, pelvic pain and painful periods. Denies vaginal discharge, incontinence, dysuria, hematuria, urinary frequency, amenorrhea, abnormal vaginal bleeding, genital sores, decreased libido, painful sex, urinary urgency, hot flashes, vaginal dryness, vaginal itching and vaginal odor. CV Denies chest pains, palpitations, syncope, dyspnea on exertion, orthopnea, PND and peripheral edema. Resp Denies cough, dyspnea at rest, excessive sputum, hemoptysis, wheezing and pleurisy. GI Denies nausea, vomiting, diarrhea, constipation, change in bowel habits, abdominal pain, melena, hematochezia, jaundice, gas/bloating, indigestion/heartburn, dysphagia and odynophagia. Breast Denies left breast lump, right breast lump, nipple discharge, bloody discharge from nipple, breast pain, abnormal mammogram and breast enlargement. Psych Denies depression, anxiety, irritability and mood swings. Past History Past Medical History: other (SEE HPI FOR DETAILS) Social history: full code, other (SEE HPI FOR DETAILS) Family history: other (SEE HPI FOR DETAILS) Medications and Allergies Allergies Allergy/AdvReac Type Severity Reaction Status Date / Time No Known Allergies Allergy Unverified 08/31/21 21:19 Home Medications Medication Instructions Recorded Confirmed Last Taken Type Ursodiol (Nf) [Actigall (Nf)] 500 mg PO TID 09/13/17 09/04/21 08/27/21 15:00 History Celecoxib [celeBREX] 200 mg PO DAILY 08/31/21 09/04/21 08/28/21 09:00 History Desvenlafaxine [Khedezla] 50 mg PO DAILY 08/31/21 09/04/2121 08:00 History Esomeprazole Magnesium [NexIUM] 40 mg PO QDAY 08/31/21 09/04/21 09/04/21 04:00 History Active Meds: Active Medications Acetaminophen (Acetaminophen 500 Mg Tab) 1,000 mg PO PREOP MONSTER Celecoxib (Celecoxib 200 Mg Cap) 200 mg PO PREOP NR Stop: 09/04/21 23:59 Fentanyl (Fentanyl 100 Mcg/2 Ml Inj) 100 mcg IV ONCE PRN PRN Reason: sedation for nerve block Gabapentin (Gabapentin 300 Mg Cap) 300 mg PO PREOP NR Stop: 09/04/21 23:59 Cefazolin Sodium (Ancef/Sterile Water 2 Gm/20 Ml) 2 gm in 20 mls @ 80 mls/hr IV PREOP NR; Protocol Stop: 09/04/21 23:59 Lactated Ringer's (Lactated Ringers) 1,000 mls @ 100 mls/hr IV DIRECT MONSTER Stop: 09/04/21 23:59 Midazolam HCl (Midazolam 2 Mg/2 Ml Inj) 2 mg IV PREOP NR Stop: 09/04/21 23:59 Scopolamine (Scopolamine Transdermal Patch 72 Hr) 1 each TD PREOP NR Stop: 09/04/21 23:59 Review of Systems Constitutional: other (SEE HPI FOR DETAILS) Exam - Physical Exam Narrative exam: HEENT: normocephalic, no lesions or deformities Skin no ulcers, xanthomas Chest: respiratory effort normal, clear to auscultation Breasts: no masses or nipple discharge CV: regular, normal S1-S2, no murmur, no rub, no gallop Abdomen: Obese soft, Tender in suprapubic area, soft, no masses Well healed vertical surgical scar Neuro: no gross anomalities Extremities: no clubbing, cyanosis, or edema PROCED TECH Exams Vulva/Vagina: normal appearance, no discharge, lesions. No evidence of cystocele or rectocele. Cervix: normal appearance, no lesions, no discharge Uterus: unable to palpate due to patient's guarding Adnexae: unable to palpate due to obesity Rectovaginal: exam defered - Constitutional Vitals: Temp Pulse Resp BP Pulse Ox 98.3 F 65 20 128/73 98 09/01/21 12:25 09/01/21 12:25 09/01/21 12:25 09/01/21 12:25 09/01/21 12:25 Assessment and Plan - Patient Problems (1) Intramural leiomyoma of uterus Current Visit: No Status: Acute Plan to address problem: Diagnosis explained to patient . Questions answered. Discussed with patient various medical, surgical and radiological therapies common for treatment including expectant management, myomectomy hysterectomy and uterine artery embolization Patient desires definitive treatment Patient desires hysterectomy Discussed risks and benefits of laparotomy, laparoscopy, vaginal and robotic assisted approaches for hysterectomies Patient desires robotic assisted total hysterectomy. Consent reviewed and signed . The risks and alternatives for this surgery were reviewed with the patient. Discuss the risks of the surgery including infection, bleeding possibly heavy enough to require a blood t ransfusion, possible damage to bowel, bladder or ureter. Patient understand that this surgery with make her sterile.Patient understands if her ovaries are removed she will become menopausal. Also if unable to complete robitcally a laparotomy may be required. (2) Menorrhagia Current Visit: No Status: Resolved Plan to address problem: Probably secondary to # 1 (3) Dysmenorrhea Current Visit: No Status: Acute Plan to address problem: Probably secondary to # 1 (4) Liver disorders in diseases classified elsewhere Current Visit: No Status: Acute (5) Anxiety Current Visit: No Status: Acute (6) Anemia Current Visit: No Status: Acute Qualifiers: Iron deficiency anemia type: chronic blood loss Plan to address problem: Probably secondary to # 2
[~2021-09-04 06:14] MED LIST: ACETAMINOPHEN 500 MG TAB PO SCH; CELECOXIB 200 MG CAP PO NR; GABAPENTIN 300 MG CAP PO NR; LACTATED RINGERS 1,000 ML IV SCH; MIDAZOLAM 2 MG/2 ML INJ IV NR; SCOPOLAMINE TRANSDERMAL PATCH 72 HR TD NR; fentaNYL 100 MCG/2 ML INJ IV PRN
[2021-09-04] MEDS ORDERED: ceFAZolin/Water 2 GM/20 ML 2 GM/20 ML SYRINGE IV NR (07:00)
[2021-09-04] MEDS ORDERED: fentaNYL 100 MCG/2 ML INJ ONE ×2 (07:08→11:34)
[2021-09-04] MEDS ORDERED: ROCURONIUM 50 MG/5 ML INJ IV ONE ×2 (07:08→09:34)
[2021-09-04] MEDS ORDERED: LIDOCAINE MPF (2%) 20 MG/1 ML VIAL 5 ML ONE (07:08)
[2021-09-04] MEDS ORDERED: propofoL 200 MG/20 ML VIAL IV ONE (07:09)
--- NOTE | 2021-09-04 07:14 | Anesthesia Day of Surgery ---
Anesthesia Day of Surgery - Day of Surgery Patient Examined: Yes Patient H&P Reviewed: Yes Patient is NPO: Yes
[2021-09-04] MEDS ORDERED: BUPIVACAINE/PF (0.25%) 2.5 MG/ML 30 ML VIAL INFILTRATI ONE (07:20)
[2021-09-04] MEDS ORDERED: dexAMETHasone 4 MG/ML VIAL ONE (07:20)
[2021-09-04] MEDS ORDERED: NEOMY 40 MG/POLYMYXIN B 200,000 UNITS/ML (GU) AMPULE IR ONE ×2 (07:22→10:32)
[2021-09-04] MEDS ORDERED: oxyCODONE /ACETAMINOPHEN 5-325MG TAB PO PRN (07:26)
[2021-09-04] MEDS ORDERED: ONDANSETRON 4 MG/2 ML INJ IV PRN ×2 (07:26→18:26)
[2021-09-04] MEDS ORDERED: CITRIC ACID-SOD CITRATE 500 ML IV ONE (08:07)
[2021-09-04] MEDS ORDERED: dexAMETHasone 20 MG/5 ML VIAL ONE (08:39)
[2021-09-04] MEDS ORDERED: NEOSTIGMINE 10MG/10 ML INJ MDV ONE (09:30)
[2021-09-04] MEDS ORDERED: GLYCOPYRROLATE 0.4 MG/2 ML INJ ONE ×3 (09:30)
[2021-09-04] MEDS ORDERED: PHENYLEPHRINE/NS 1,000 MCG/10 ML SYRINGE (OR USE) IV ONE (09:30)
[2021-09-04] MEDS ORDERED: KETOROLAC 30 MG/1 ML INJ ONE (09:30)
[2021-09-04] MEDS ORDERED: ONDANSETRON 4 MG/2 ML INJ ONE (09:31)
[2021-09-04] MEDS ORDERED: LACTATED RINGERS 1,000 ML ONE (09:40)
[2021-09-04] MEDS ORDERED: SODIUM CHLORIDE 0.9% IRR 1,500 ML BOTTLE IR ONE (10:32)
[2021-09-04] MEDS ORDERED: CITRIC ACID-SOD CITRATE SOLN 500 ML IV SOLN IV ONE (10:32)
[2021-09-04] MEDS ORDERED: SODIUM CHLORIDE 0.9% IRRIG SOLN 2000 ML IR ONE (10:33)
[2021-09-04] MEDS ORDERED: KETOROLAC 30 MG/1 ML INJ IV NR (11:47)
--- NOTE | 2021-09-04 11:54 | Operative Report ---
Operative Report Operative Report: Date of procedure: September 04, 2021 Pre-operative diagnosis: Symptomatic leiomyomata with menorrhalgia, dysm enorrhea, pelvic pain and anemia Post-operative diagnosis: Same plus extensive pelvic adhesive disease and omental adhesion Procedure name(s):Robotic Assisted Total Hysterectomy with left salpingectomy with lysis of adhesions Surgeon: Kevin Thrasher MD Hearing Aid Repairer: Pia Foreman, certified hyperbaric technician Anesthesia: General EBL: 50 cc Complications: None Findings: Patient with extensive omental adhesions to the anterior abdominal wall also with adhesions with mild bowel to anterior abdominal wall patient had liver adhesions to the right sidewall. Adhesions of the right uterine cornea to the right sidewall. Left hydrosalpinx with blunted in there was also adhesed to the posterior cul-de-sac and colon. Patient with absent right adnexa Specimen(s): [] Procedure: Patient was brought to the operating room where general anesthesia was induced without difficulty. Patient was placed in the dorsal lithotomy position. Prepped and draped in the usual sterile manner for robotic procedure. Washington catheter was placed without difficulty. Speculum was placed in the vagina. A medium V-Care Uterine manipulator was placed without difficulty. Attention was now switched to the patient's abdomen. A vertical supra-umbilicus incision was made with a scalpel. A 10-12 trocar was placed in this incision under direct visualization. Intra-abdominal placement was verified with no evidence of internal organ damage. The patient was insufflated approximately 3-1/2 L of CO2 gas. She was placed in Trendelenburg position. The patient pelvic findings were noted as above. It was determined that the patient was a candidate for robotic procedure. On both sides the umbilical incision at about 8 cm, incisions were made for robotic trocars. Each robotic trocar was placed under direct visualization with no evidence of internal organ damage. One 5 mm trocar was placed 2 fingerbreadths above the right iliac crest. A 5 mm camera was placed in the right lower quadrant trocar, the 10-12 trocar was removed and a Harlan Guillen laparoscopic port closure device was placed through this incision under direct visualization with no evidence of internal organ damage. The camera was then replaced into this port. At this time the patient was placed in extreme Trendelenburg. The da Saud robot was then docked on the patient's left side. The trocars connected to the robot appropriately robotic instruments were placed under direct visualization no evidence of internal organ damage.. At this time I took my place under the robotic operating da silva. Using a robotic unipolar scissors and bipolar graspers the omental adhesions were taken down from the anterior abdominal wall carefully with no evidence of internal organ damage the bowel was inspected and found to be intact further adhesions were required to separate the right uterine cornea from the right sidewall: And also the extensive liver adhesions to the right sidewall had to be lysed in order to visualize the patient's pelvic organs more clearly. Patient intestines and liver inspected and found to be without damage. Now proceeded with performing hysterectomy, starting on the patient's right side the ureter was identified and found to be out of the operative field. Using the robotic vessel sealer the mesosalpinx under the fallopian tube were cauterized and cut starting from the distal end. Utero-ovarian complex was then cauterized and cut. This was followed by cauterizing and cutting the right fallopian tube and right round ligament. The broad ligament was then opened. The bladder flap was formed anteriorly. The posterior broad ligament was then excised. The uterine vessels were skeletonized. The ureter was clearly seen out of the operative field. The bladder was pushed away from the anterior uterus. The right uterine vessels were then cauterized and cut. Attention was then switched to the patient's left side. The same procedure was repeated on the left side with perform the salpingectomy followed by isolating the uterine vessels cauterized and cutting and completing the bladder flap from the left side. At this time the uterus was appearing very cyanotic. After inspecting the bladder flap to insured no evidence of bladder injury, the colpotomy was then started. Incision started at 6:00 until the V-Care could be seen. This incision was extended from 6:00 to 9:00. Then from 6:00 to 3:00. Then from 9:00 to 12:00. This incision was extended from 3:00 to 12:00. At this time colpotomy was complete with no evidence of adjacent organ damage. The psychiatric nursing assistant remove the uterus from through the colpotomy site. The vaginal cuff was irrigated and cauterized and found to be hemostatic. The cuff was closed with roboticly using 0 V- Lock suture. This closure was hemostatic after irrigation and Bovie. All pedicles were inspected and found to be hemostatic. The ureters were identified bilaterally and found to be functioning normal. The patient had clear urine in the Washington catheter with no evidence of mixture with blood. Satish was placed on the cuff and pedicles for postoperative hemostasis . All instruments were then removed. The large trocar sites were closed in layers 2-0 Vicryl and 4-0 Monocryl. The smaller incisions were closed subcuticularly with 4-0 Monocryl. Dermabond was placed over the skin incisions. The patient tolerated procedure well. She was awakened in the operating room and accompanied to the recovery room in good condition.
[2021-09-04] MEDS: HYDROmorphone 1 MG/1 ML INJ IV PRN ×3 (12:15→14:00)
[2021-09-04] MEDS ORDERED: oxyCODONE /ACETAMINOPHEN 5-325MG TAB ONE ×2 (12:15→14:21)
--- NOTE | 2021-09-04 16:19 | Event Note ---
Date: 09/04/21 Visit patient in the recovery room she had voided successfully multiple times. She is complaining of abdominal pain abdomen was soft consistent with distention status post robotic surgery. Patient without any nausea vomiting. Patient states that she is very anxious about going home and desires overnight observation. Patient with a history of severe anxiety decided to admit the patient overnight for observation.
--- NOTE | 2021-09-04 16:45 | Post Anesthesia Evaluation ---
- Post Anesthesia Evaluation Patient Participated: Yes Airway Patent: Yes Stable Respiratory Function: Yes Nausea/Vomiting: No Temp > 96.8F: Yes Pain Manageable: Yes Adequeate Hydration: Yes Anesthesia Complications: No
[2021-09-04] MEDS ORDERED: D5W/LACTATED RINGERS 1,000 ML IV SCH (18:26)
[2021-09-04] MEDS ORDERED: ACETAMINOPHEN 325 MG TAB PO PRN (18:26)
[2021-09-04] MEDS: KETOROLAC 30 MG/1 ML INJ IV SCH (20:01)
[2021-09-04] MEDS: ceFAZolin/NS 1 GM/50 ML 1 GM/50 ML BAG IV SCH (20:01)
[2021-09-04] MEDS: DOCUSATE SODIUM 100 MG CAP PO SCH (22:52)
[2021-09-04] MEDS: oxyCODONE /ACETAMINOPHEN 5-325MG TAB PO PRN (22:57)
[2021-09-05] MEDS: ceFAZolin/NS 1 GM/50 ML 1 GM/50 ML BAG IV SCH (02:57)
[2021-09-05] MEDS: KETOROLAC 30 MG/1 ML INJ IV SCH (02:57)
[2021-09-05 06:11] LABS: Hematocrit 26.8 % (30.3-42.9); Hemoglobin 8.4 gm/dl (10.1-14.3)
--- NOTE | 2021-09-05 08:59 | Short Stay Summary ---
Short Stay Documentation Date of service: 09/04/21 - History Principal diagnosis: Symptomatic leiomyomata Past Medical History: other (SEE HPI FOR DETAILS) Social history: full code, other (SEE HPI FOR DETAILS) - Allergies and Medications Current Medications: Allergies No Known Allergies Allergy (Unverified 08/31/21 21:19) Home Medications Medication Instructions Recorded Confirmed Last Taken Type Ursodiol (Nf) [Actigall (Nf)] 500 mg PO TID 09/13/17 09/04/21 08/27/21 15:00 History Celecoxib [celeBREX] 200 mg PO DAILY 08/31/21 09/04/21 08/28/21 09:00 History Desvenlafaxine [Khedezla] 50 mg PO DAILY 08/31/21 09/04/21 09/03/21 08:00 History Esomeprazole Magnesium [NexIUM] 40 mg PO QDAY 08/31/21 09/04/21 09/04/21 04:00 History Ferrous Sulfate [Feosol 325 MG tab] 325 mg PO BID #60 tablet 09/04/21 Unknown Rx Ibuprofen [Motrin] 800 mg PO TID PRN #30 tablet 09/04/21 Unknown Rx metroNIDAZOLE [Flagyl] 500 mg PO Q12HR #14 tab 09/04/21 Unknown Rx oxyCODONE /ACETAMINOPHEN [Percocet 1 - 2 tab PO Q6HR PRN #20 tablet 09/04/21 Unknown Rx 5/325 mg] Active Medications Acetaminophen (Acetaminophen 325 Mg Tab) 650 mg PO Q4H PRN PRN Reason: Pain MILD(1-3)/Fever >100.5/[place] Docusate Sodium (Docusate Sodium 100 Mg Cap) 100 mg PO BID [facility] Last Admin: 09/04/21 22:52 Dose: 100 mg Documented by: Dextrose/Lactated Ringer's ([id number]) 1,000 mls @ 125 mls/hr IV DIRECT [facility] Miscellaneous Medication (Desvenlafaxine [Khedezla]) 50 mg PO DAILY [facility] Ondansetron HCl (Ondansetron 4 Mg/2 Ml Inj) 4 mg IV Q8H PRN PRN Reason: Nausea And Vomiting Oxycodone/Acetaminophen (Oxycodone /Acetaminophen 5-325mg Tab) 2 tab PO Q6H PRN PRN Reason: Pain, Moderate (4-6) Last Admin: 09/04/21 22:57 Dose: 2 tab Documented by: Pantoprazole Sodium (Pantoprazole 40 Mg Tab) 40 mg PO DAILY [facility]STER - Physical exam General appearance: no acute distress Integumentary: no rash HEENT: Atraumatic Lungs: Normal air movement Breasts: deferred Heart: Regular rate Gastrointestinal: normal, hypoactive bowel sounds, tenderness (Appropriate postoperatively), distended (Appropriate post robotic surgery), other (Incisions intact healing well) Female Genitourinary: normal Rectal Exam: deferred Extremities: no ischemia, pulses intact, No edema, Full ROM Neurological: Normal gait, Normal speech - Brief post op/procedure progress note Date of procedure: 09/04/21 (See operative note for details) - Hospital course Hospital course: Patient was kept overnight due to anxiety abdominal distention. Patient is without complaint of nausea vomiting fever chills she is tolerating regular diet has had less distention this morning and desires to go home Her post operative course was benign she was afebrile throughout. Patient postoperative day 1 hematocrit was in an acceptable range. Patient had no orthostatic symptoms. Patient was tolerating regular diet and voiding without difficulty at time of discharge. Patient incision was healing well without evidence of infection. - Disposition Condition at discharge: Good Disposition: 01 HOME / SELF CARE / HOMELESS - Discharge Diagnoses (1) Intramural leiomyoma of uterus Status: Acute (2) Menorrhagia Status: Resolved (3) Dysmenorrhea Status: Acute (4) Liver disorders in diseases classified elsewhere Status: Acute (5) Anxiety Status: Acute (6) Anemia Status: Acute Qualifiers: Iron deficiency anemia type: chronic blood loss Short Stay Discharge Plan Activity: advance as tolerated Wound: open to air Additional Instructions: Patient instructed no heavy lifting for 4 weeks. No intercourse for 8 weeks. Call office for fever, chills, nausea, vomiting or pain not controlled by pain medications. Ambulation is encouraged. Patient's call for heavy vaginal bleeding. Patient instructed to keep her scheduled post operative office appointment. Follow up with: ELIE MENDOZA MD [Primary Care Provider] - 7 Days Prescriptions: Ferrous Sulfate [Feosol 325 MG tab] 325 mg PO BID #60 tablet metroNIDAZOLE [Flagyl] 500 mg PO Q12HR #14 tab Ibuprofen [Motrin] 800 mg PO TID PRN #30 tablet PRN Reason: Pain oxyCODONE /ACETAMINOPHEN [Percocet 5/325 mg] 1 - 2 tab PO Q6HR PRN #20 tablet PRN Reason: Pain
[2021-09-05] MEDS ORDERED: PANTOPRAZOLE 40 MG TAB PO SCH (10:00)
[2021-09-05] MEDS ORDERED: DESVENLAFAXINE 50 MG PO SCH (10:00)
[2021-09-05] MEDS ORDERED: NON-FORMULARY EACH (Esomeprazole Magnesium [Nexium] 40 MG Capsule.Dr) PO SCH (10:00)
[2021-09-05 10:09] VITALS: BP 112/84
[2021-09-05] MEDS: DOCUSATE SODIUM 100 MG CAP PO SCH (10:40)
[2021-09-05] MEDS: oxyCODONE /ACETAMINOPHEN 5-325MG TAB PO PRN (10:40)
== END 2021-09-05 11:26 | disposition home or self-care (01) ==
LOC: OR 06:14 → OB 16:14
PROVIDERS: ADMIT Obstetrics & Gynecology; ATTEND Obstetrics & Gynecology
DX: D25.1 Intramural leiomyoma of uterus (principal); Z20.822 Contact with and (suspected) exposure to COVID-19; N92.0 Excessive and frequent menstruation with regular cycle; N92.6 Irregular menstruation, unspecified; N94.6 Dysmenorrhea, unspecified; D64.9 Anemia, unspecified; K76.9 Liver disease, unspecified; F41.9 Anxiety disorder, unspecified; R14.0 Abdominal distension (gaseous); Z98.890 Other specified postprocedural states; Z90.710 Acquired absence of both cervix and uterus; Z98.891 History of uterine scar from previous surgery
CPT/HCPCS: 36415; 58571; 64450; 81025; 85014; 85018; 86850; 86900; 86901; 88307; 96365; 96366; 96375; 96376; A4217; G0378; J0690; J1100; J1170; J1885; J2250; J2370; J2405; J2704; J2710; J3010; J7120; S2900; U0003